=== PATIENT | female | born 1980 | race Caucasian/White ===

== ENCOUNTER → 2019-12-15 08:22 | Outpatient (CLI) | payer OTHER, SELFPAY ==
--- NOTE | ~2019-12-15 | XR_ITS ---
EXAMINATION: XR foot RT min 3V EXAM DATE: 12/15/2019 08:43 INDICATION: No known recent injury provided at this time. Pain of the right foot. Plantar fasciitis. TECHNIQUE: Right foot dorsoplantar, lateral and oblique projections obtained and reviewed. Compariso n is made to prior examination from 03/03/2009. FINDINGS: Previously seen right fifth metatarsal fracture has healed. No periosteal reaction or band of sclerosis to suggest subacute stress fracture. There is moderate hallux valgus and mild bunion formation. The joint spaces are uniform. There are no bony erosions identified. There are no acute fr actures or dislocations identified. There is no subcutaneous gas. The soft tissue is unremarkable. There are no radiopaque foreign bodies. IMPRESSION: Right hallux valgus, bunion. Reviewed, dictated and finalized at location B.
== END ==
PROVIDERS: PCP Internal Medicine; Visit Provider Chiropractor Rehabilitation
DX: M72.2 Plantar fascial fibromatosis (principal); M20.11 Hallux valgus (acquired), right foot
CPT/HCPCS: 73630

== ENCOUNTER → 2020-12-17 15:59 | Outpatient (CLI) | payer OTHER, SELFPAY ==
--- NOTE | ~2020-12-17 | MM_ITS ---
EXAMINATION: MM screening isaac BI w marina HISTORY: Screening TECHNIQUE: Craniocaudal and mediolateral oblique 3-D tomosynthesis images were obtained and synthetic 2-D images were generated. CAD analysis was submitted and interpreted. COMPARISON: No prior mammogram is available for comparison at this institution. BREAST PARENCHYMAL COMPOSITION: The breasts are heterogeneously dense, which may obscure small masses . FINDINGS: There are scattered asymmetries in the right breast. There are no suspicious masses, calcif ications or architectural distortion in the left breast to suggest malignancy. IMPRESSION: 1. Scattered right breast asymmetries. 2. Additional mammographic views and possible breast ultrasound are recommended. BI-RADS Category 0: Incomplete: Needs additional imaging evaluation. Reviewed, dictated and finalized at location A. IMPRESSION: 1. Scattered right breast asymmetries. 2. Additional mammographic views and possible breast ultrasound are recommended . BI-RADS Category 0: Incomplete: Needs additional imaging evaluation.
== END ==
PROVIDERS: Visit Provider Nurse Practitioner Obstetrics & Gynecology
DX: Z12.31 Encounter for screening mammogram for malignant neoplasm of breast (principal); R92.8 Other abnormal and inconclusive findings on diagnostic imaging of breast
CPT/HCPCS: 77063; 77067

== ENCOUNTER → 2021-04-01 07:53 | Outpatient (CLI) | payer OTHER, SELFPAY ==
--- NOTE | ~2021-04-01 | MMUS_ITS ---
EXAMINATION: MM diagnostic isaac RT w marina, US breast RT complete HISTORY: Follow-up right breast asymmetry TECHNIQUE: Additional 3-D tomosynthesis images of the right breast were performed and synthetic 2-D i mages were generated. CAD analysis was submitted and interpreted. High resolution complete right sheree st ultrasound was performed. COMPARISON: 12/17/2020 BREAST PARENCHYMAL COMPOSITION: The breasts are heterogenously dense, which may obscure small masses. FINDINGS: MAMMOGRAPHIC FINDINGS: There are no suspicious masses, calcifications or architectural distortion in the right breast to sug gest malignancy. ULTRASOUND: Complete right breast ultrasound: Normal heterogeneous echotexture without focal solid or cystic mass . IMPRESSION: 1. No mammographic or sonographic evidence for malignancy in the right breast. 2. Routine yearly screening mammogram and regular clinical breast examination are recommended. BI-RADS Category 1: Negative Reviewed, dictated and finalized at location A. IMPRESSION: 1. No mammographic or sonographic evidence for malignancy in the right breast. 2. Routine yearly screening mammogram and regular clinical breast examination a re recommended. BI-RADS Category 1: Negative
== END ==
PROVIDERS: Visit Provider Nurse Practitioner Obstetrics & Gynecology
DX: R92.8 Other abnormal and inconclusive findings on diagnostic imaging of breast (principal)
CPT/HCPCS: 76641; 77061; 77065; G0279

== ENCOUNTER → 2022-01-23 09:47 | Outpatient (CLI) | payer BC, SELFPAY ==
--- NOTE | ~2022-01-23 | XR_ITS ---
EXAMINATION: XR chest 2V DATE: 01/23/2022 10:27 INDICATION: Dyspnea, unspecified. TECHNIQUE: Frontal and lateral views of the chest were obtained. COMPARISON: Chest single view 03/28/2014 FINDINGS: The chest demonstrates clear lungs without pneumonia, pleural effusion, or pneumothorax. Th e heart size is normal. IMPRESSION: 1. No acute cardiopulmonary disease. Reviewed, dictated and finalized at location B.
== END ==
PROVIDERS: PCP Family Medicine; Visit Provider Family Medicine
DX: R06.00 Dyspnea, unspecified (principal)
CPT/HCPCS: 71046

== ENCOUNTER 2022-06-02 07:40 | Outpatient (CLI) | payer BC, SELFPAY ==
[2022-06-02 08:04] LABS: Basophils Percent Auto 0.8 % (0.2-1.2); Eosinophils Absolute Auto 0.1 K/mm3 (0-0.3); Eosinophils Percent Auto 2.7 % (0-4.4); Hematocrit 39.9 % (37.0-47.0); Hemoglobin 13.3 g/dL (12.0-15.0); Immature Granulocyte Absolute 0.01 K/mm3 (0.00-0.031); Immature Granulocyte Percent A 0.2 % (0-0.5); Lymphocytes Absolute Auto 1.92 K/mm3 (0.9-3.2); Lymphocytes Percent Auto 39.6 % (18.3-44.2); Mean Corpuscular HGB Conc 33.3 g/dl (32-36); Mean Corpuscular Hemoglobin 31.6 pg (26-34); Mean Corpuscular Volume 94.8 fl (80-100); Mean Platelet Volume 10.6 fl (7.4-10.4); Monocytes Absolute Auto 0.4 K/mm3 (0.1-0.6); Monocytes Percent Auto 7.6 % (2.6-8.5); Neutrophils Absolute Auto 2.4 K/mm3 (1.3-6.7); Neutrophils Percent Auto 49.1 % (45.5-73.1); Platelet Count Result 217 k/mm3 (150-375); Red Blood Count 4.21 M/mm3 (4.2-5.4); Red Cell Distribution Width 11.9 % (11.5-14.5); White Blood Count 4.9 K/mm3 (4.5-10.0)
[2022-06-02 08:23] LABS: Alanine Aminotransferase 16 U/L (6-35); Albumin Level 4.1 g/dL (3.5-5.1); Alkaline Phosphatase 54 U/L (38-126); Anion Gap 9 mmol/L (8-16); Aspartate Amino Transferase 28 U/L (14-36); Bilirubin,Total 0.7 mg/dL (0.2-1.3); Blood Urea Nitrogen 10 mg/dL (7-17); Calcium 9.1 mg/dL (8.4-10.2); Carbon Dioxide 27 mmol/L (22-30); Chloride 103 mmol/L (98-107); Cholesterol 154 mg/dL (0-200); Estimated Glomerular Filt Rate > 60; Glucose 95 mg/dL (65-110); HDL Direct 89 mg/dL; Potassium 3.9 mmol/L (3.4-5.0); Sodium 139 mmol/L (137-145); Triglycerides 102 mg/dL (<150)
[2022-06-02 08:34] LABS: LDL Cholesterol Direct 45 mg/dL
[2022-06-02 09:02] LABS: Hemoglobin A1C 4.7 % (<5.7)
[2022-06-02 09:12] LABS: Free T4 Free Thyroxine 1.22 ng/mL (0.78-2.19); Vitamin D 25 Hydroxy 80.9 ng/mL
== END 2022-06-02 07:41 | disposition home or self-care (01) ==
LOC: ANHLAB 07:42
PROVIDERS: PCP Family Medicine; Visit Provider Family Medicine
DX: R06.00 Dyspnea, unspecified (principal); E55.9 Vitamin D deficiency, unspecified; Z13.220 Encounter for screening for lipoid disorders; R53.83 Other fatigue; R73.9 Hyperglycemia, unspecified
CPT/HCPCS: 36415; 80053; 80061; 82306; 83036; 84439; 84443; 85025

== ENCOUNTER 2024-11-20 09:34 | Outpatient (CLI) | payer OTHER, SELFPAY ==
--- NOTE | ~2024-11-20 | MM_ITS ---
EXAMINATION: MM screening isaac BI w marina HISTORY: Screening TECHNIQUE: Craniocaudal and mediolateral oblique 3-D tomosynthesis images were obtained and synthetic 2-D images were generated. CAD analysis was submitted and interpreted. COMPARISON: Comparison to multiple prior studies sequentially, with oldest reviewed study dated 12/17. BREAST PARENCHYMAL COMPOSITION: Not dense: There are scattered areas of fibroglandular density. FINDINGS: There is no evidence of suspicious mass, calcification, or architectural distortion to sugg est malignancy in either breast. There has been no suspicious interval change. IMPRESSION: 1. No mammographic evidence of malignancy. 2. Recommend routine screening mammography in one year. BI-RADS Category 1: Negative Reviewed, dictated and finalized at location B. 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
--- OUTSIDE RECORDS SUMMARY | 2024-11-20 12:27 | XMS_ITS | Clinical Summary ---
Author Organization [facility] [place] [facility] [place] [address] [place] [address] Care Team Providers Care Stamp Maker Name Role Phone Ted Blackwell DO Primary Care Provider [phone] Allergies No known active allergies Medications ibuprofen (ADVIL,MOTRIN) 600 mg tablet Take 600 mg by mouth every 6 (six) hours as needed for pain Active albuterol HFA (PROVENTIL HFA,VENTOLIN HFA,PROAIR HFA) 90 mcg/actuation inhaler albuterol sulfate HFA 90 mcg/actuation aerosol inhaler INHALE 2 PUFFS BY MOUTH EVERY 4 HOURS NEEDED FOR SHORTNESS OF BREATH OR WHEEZING Active cephalexin (KEFLEX) 500 mg capsule TAKE 1 CAPSULE BY MOUTH FOUR TIMES A DAY FOR 7 DAYS 3 Active Blisovi 24 Fe 1 mg-20 mcg (24)/75 mg (4) per tablet Take 1 tablet by mouth daily 3 Active Active Problems Problem Noted Date Diagnosed Date Atypical squamous cells of u ndetermined significance (ASCUS) on Papanicolaou smear of cervix 08/31/2016 Overview (05/24/2023): ASCUS;Recorded Elsewhere: No Location: [facility] Source: EHR Chronic: N Practice ID: [id number] Billable Time: 10:30:00 AM Glycosuria 02/07/2014 Overview (05/24/2023): Glycosuria;Practice ID: [id number] Delivery normal 07/29/2012 Overview (05/24/2023): Normal delivery;Practice ID: [id number] Oligohydramnios with problem 2 Overview (05/24/2023): Oligohydramnios, antepartum;Practice ID: [id number] Oligohydramnios, antepartum;Recorded Elsewhere: No Location: [facility] Source: EHR Chronic: N Practice ID: [id number] Billable Time: 03:00:00 PM Amenorrhea 12/08/2011 Overview (05/24/2023): Absence of menstruation;Recorded Elsewhere: No Location: [facility] Source: EHR Chronic: N Practice ID: [id number] Billable Time: 02:45:00 PM Surgical History Surgery Date Site/Laterality Comments FRACTURE SURGERY Medical History Medical History Date Comments Hx Other Medical right ankle [place] Family History Medical History Relation Name Comments Diabetes Other Hypertension Other Family history of Hypertension; Relation Name Status Comments Other Social History Tobacco Use Types Packs/Day Years Used Date Smoking Tobacco: Never Smokeless Tobacco: Never Alcohol Use Standard Drinks/Week Comments Yes 0 (1 standard drink = 0.6 oz pur e alcohol) Comments No Sex and Gender Information Value Date Recorded Sex Assigned at Not on file Legal Sex Female 3:07 PM [employer] Gender Identity Not on file Sexual Orientation Not on file Obstetrics History Last Filed Vital Signs Vital Sign Reading Time Taken Comments Blood Pressure 129/82 06/25/2020 1:14 PM CDT Pulse 64 06/25/2020 1:14 PM CDT Temperature 37.2 C (98.9 F) 06/25/2020 1:14 PM CDT Respiratory Rate 16 01/16/2019 7:42 PM CDT Oxygen Saturation 99% 01/16/2019 7:42 PM CDT Inhaled Oxygen Concentration - - Weight 53.1 kg (117 lb) 06/25/2020 1:14 PM CDT Height 162.6 cm (5' 4 ) 06/25/2020 1:14 PM CDT Body Mass Index 20.08 06/25/2020 1:14 PM CDT Plan of Treatment Health Maintenance Due Date Last Done Comments Breast Cancer Screening-Mammogram 1978 Cervical Cancer Screening 1978 Colon Cancer Screening-Colonoscopy 1978 Depression Screening 1978 Hepatitis C Screening 1978 Hepatitis B Screening 1996 Regular Well Visit/Exam 18-64 1996 Covid-19 Vaccine (2 - 2023-2 5 season) 2024 08/04/2021 Influenza Vaccine (#1) 2024 2, 07/30/2021 DTaP/Tdap/Td Vaccine (2 - Td or Tdap) 03/06/2033 03/06/2023 HPV Vaccines Aged Out No longer eligi ble based on patient's age to complete this topic Pneumococcal vaccine <65 Aged Out No longer eligible based on patient's age to complete this topic Insurance [facility] [place] [employer] [facility] [employer] GENER[employer] S AND [facility] Care Teams Stamp Maker Relationship Specialty Start Date End Date Ted Blackwell DO PCP - General Internal Medicine 01/16/19
--- OUTSIDE RECORDS SUMMARY | 2024-11-20 12:27 | XMS_ITS | Data Portability ---
Author Organization [facility] [place] Address [address] [place] [address] Care Team Providers Care Clinical Research Scientist Name Role Phone CLARISSA ESCALERA Primary Care Provider Assessment Encounter Date Assessment Date Assessment LastModified by Organization Details LastModified Time 06/11/2020 06/11/2020 Annual gynecological exam performed. Patient will come back in a year unless there are new symptoms. [email or web address] Not available 06/11/2020 12:45:21 06/19/2021 06/19/2021 Annual gynecological exam performed. Patient will come back in a year unless there are new symptoms. Not available 06/19/2021 10:55:27 09/22/2022 09/22/2022 Annual gynecological exam performed. Patient will come back in a year unless there are new symptoms. [email or web address] Not available 09/22/2022 09:41:59 12/23/2023 12/23/2023 Annual gynecological exam performed. Patient will come back in a year unless there are new symptoms. [email or web address] Not available 12/23/2023 14:34:41 Plan of Treatment Reminders Order Date Submit Date Provider Last Modified By Organization Details Last Modified Time Details Appointments None recorded . Lab None recorded . Referral None recorded . Procedures None recorded . Surgeries None recorded . Imaging MAMMO, screenin g, bilclivea l 2023 024 [email or web address] [facility], [address], [place], [address], 05/23/202 4 14:17:59 MAMMO, screenin g, bilatera l 2021 022 [facility] , [address], [address] [address], [place], [address], 3 05:01:15 Medication Orders Junel Fe 24 1 mg-20 mcg (24)/75 mg (4) tablet [address] [id number], [address], [place], [place], [id number], 4 14:50:50 Blisovi 24 Fe 1 mg-20 mcg (24)/75 mg (4) tablet 2021 022 [id number], [address], [place], [address], 2 09:49:45 Junel Fe 24 1 mg-20 mcg (24)/75 mg (4) tablet 2020 021 [facility] [id number] [facility], [address] [facility], [place], [address], 1 11:06:58 Junel FE /20 (28) 1 mg-20 mcg (21)/75 mg (7) tablet 2019 020 [facility] [id number] [facility], [address] [facility], [place], [address], 2 09:42:36 Patient TargetsNo targets recorded. Patient Instructions Encounter Date Encounter Id Patient Instructions Last Modified By Organization Details Last Modified Time 06/11/2020 [id number] [email or web address] Not available 13:16:00 Reason for Referral None Reported. Results Created Date Observation Date Name Description Value Unit Range Abnormal Flag Note LastModifiedBy Organization Detail LastModifiedTime 06/11/20 20 06/12/2020 CT + NG DNA, PCR, unspe cifie d speci men trichomonas vaginalis, aptima (panther) NOT DETECT ED normal DNA testi ng perfo rmed by Trans cript ion Media johnny Ampli ficat ion (TMA) These resul ts shoul d be inter prete d in light of all clini courtney and labor atory findi ngs. This assay is highl y accur ate, but rare false posit jim and negat jim resul ts may occur . Posit jim resul ts in low preva lence popul ation s may requi re re-ev aluat ion. A negat jim resul t does not precl ude a possi ble infec tion due to a speci men inade quacy or sampl ing error . Test perfo rmed by [employer] (V3D) Patho [employer], d/b/a [employer], [address], [place] [address] , Anamaria Freed ra, DO, Labor atory Direc tor. Not Available [facility] ([facility]) [address], [place], [address], 06/13/2020 19:56:41 06/11/20 20 06/12/2020 CT + NG DNA, PCR, unspe cifie d speci men neisseria gonorrhoeae, aptima NOT DETECT ED normal DNA testi ng perfo rmed by Trans cript ion Media johnny Ampli ficat ion (TMA) These resul ts shoul d be inter prete d in light of all clini courtney and labor atory findi ngs. This assay is highl y accur ate, but rare false posit jim and negat jim resul ts may occur . Posit jim resul ts in low preva lence popul ation s may requi re re-ev aluat ion. A negat jim resul t does not precl ude a possi ble infec tion due to a speci men inade quacy or sampl ing error . Test perfo rmed by [employer] (V3D) Patho [employer], [employer], d/b/a [employer] [employer], [address], [place] [address] , Anamaria Freed ra, DO, Labor atory Direc tor. Not Available [facility] ([facility]) [address], [place], [address], 06/13/2020 19:56:41 06/11/20 20 06/12/2020 CT + NG DNA, PCR, unspe cifie d speci men chlamydia trachomatis, aptima NOT DETECT ED normal DNA testi ng perfo rmed by Trans cript ion Media johnny Ampli ficat ion (TMA) These resul ts shoul d be inter prete d in light of all clini courtney and labor atory findi ngs. This assay is highl y accur ate, but rare false posit jim and negat jim resul ts may occur . Posit jim resul ts in low preva lence popul ation s may requi re re-ev aluat ion. A negat jim resul t does not precl ude a possi ble infec tion due to a speci men inade quacy or sampl ing error . Test perfo rmed by [facility], d/b/a [employer], [address] [facility] [address], [place] [address] , Anamaria Freed ra, DO, Labor atory Direc tor. Not Available [facility] ([facility]) [address], [place], [address], 06/13/2020 19:56:41 06/11/20 20 06/12/2020 HPV DNA, high- risk HPV high risk NOT DETECT ED normal The human papil lomav irus (HPV) High Risk Shweta vega is an FDA-a pprov ed in-vi tro ampli fied nucle ic acid test for the quali tativ e detec tion of E6/E7 viral mRNA. Resul ts shoul d be corre lated with patie nt prese ntati on, histo ry, cervi courtney cytol ogy and other clini courtney and labor atory findi ngs. See https ://I-frontdesk wKOWN. [employer]/s ites/ defau lt/fi les/2 018-0 3/AW- 10122 _002_ 01.pd f for furth er infor matio n. Test perfo rmed by [facility], d/b/a [employer], [address], [place] [address] , Anamaria Freed ra, DO, Labor atory Dire tor. Not Available [facility] ([facility]) [address], [place], [address], 06/13/2020 19:56:41 06/11/20 20 06/13/2020 pap, LB Pap test thin prep Negati ve for Intrae pithel ial Lesion or Malign allison normal ACCES NAVARRO #: [id number] [facility] e: Cervi courtney/E ndoce rvica l LMP: 02/20 Date Taken : 06/11 Speci men Type: ThinP rep Vial Date Repor johnny: 2019 Clini coutrney Data: Cytot ech: Arturo parrish, CT( CP) Date Repor johnny: 020 Speci men Adequ acy: Satis facto ry for evalu ation Endoc ervic al/tr ansfo rmati on zone compo nent prese nt Gener al Categ oriza tion: NEGAT JIM FOR INTRA EPITH ELIAL LESIO N OR MALIG QING The follo wing tests have been order ed as reque sted and a separ ate repor t will be issue d: Chlam ydia, Gonor rhoea e, and Trich omona s This speci men has been raul zed by the ThinP rep Imagi ng Syste m, an inter activ e compu ter syste m which will ts the lab in the scree carrillo of ThinP rep Pap Test slide s. Follo wing imagi ng, the slide was revie wed by a Cytot echno logis t and/o r Patho logis t. D N A A S S A Y S R E P O R T TEST NAME RESUL TS ----- ---- ----- -- HPV High Risk Scree n (TMA) ThinP rep Vial The human papil lomav irus (HPV) High Risk Shweta vega is an FDA-a pprov ed in-vi tro ampli fied nucle ic acid test for the quali tativ e detec tion of E6/E7 viral mRNA. Resul ts shoul d be corre lated with patie nt prese ntati on, histo ry, cervi courtney cytol ogy and other clini courtney and labor atory findi ngs. See https ://CREATIV.COM/s ites/ defau lt/fi -0 - 76645 _002_ .pd f for furth er infor matio n. Test perfo rmed by [employer] [facility] [employer], d/b/a [employer], [address], [place] [address] , Anamaria Freed ra, DO, Labor atory Direc tor. HPV High Risk *HPV NOT DETEC JOHNNY (TYPE S 16, 18, 31, 33, 35, 39, 45, 51, 52, 56, 58, 59, 66, 68) *HPV: The human papil lomav irus (HPV) High Risk Shweta vega is an FDA-a pprov ed in-vi tro ampli fied nucle ic acid test for the quali tativ e detec tion of E6/E7 viral mRNA. Resul ts yimi d be corre lated with patie nt prese ntati on, histo ry, cervi courtney cytol ogy and other clini courtney and labor atory findi ngs. See https ://CREATIV.COM/s ites/ defau lt/fi -0 - 83231 _002_ .pd f for furth er infor matio n. Test perfo rmed by [employer] iated Patho [employer], d/b/a [employer] [employer], [address], [place] [address] , Anamaria Freed ra, DO, Labor atory Direc tor. End of Repor t Techn ical servi edna provi ded by [employer] iated Patho [employer], d/b/a [employer] [employer], [address] [place] [address] Avtar Kiser MD, Labor atory Direc tor. Case revie wed and diagn osis rende red at [facility], d/b/a [facility], [address] [place] [address] Avtar Kiser MD, Labor atory Direc tor. CONFI DENTI AL Not Available [facility] ([facility]) [address], [place], [address], 06/13/2020 20:25:55 06/19/20 21 06/19/2021 CT/GC AND TRICH OMONA S VAGIN YANI (RRNA ), SWAB chlamydia trachomatis, PCR Negati ve negati ve Not Available [facility] ([facility]) [address], [place], [address], 06/20/2021 13:13:35 06/19/20 21 06/19/2021 CT/GC AND TRICH OMONA S VAGIN YANI (RRNA ), SWAB neisseria gonorrhoeae, PCR Negati ve negati ve Not Available [facility] (Lab) [address], [place], [address], 06/20/2021 13:13:35 06/19/20 21 06/19/2021 CT/GC AND TRICH OMONA S VAGIN YANI (RRNA ), SWAB trichomonas vaginalis ribosomal RNA (rrna) Negati ve negati ve Not Available [facility] (Lab) [address], [place], [address], 06/20/2021 13:13:35 09/22/20 22 09/22/2022 IMAGE GUIDE D PAP AND HPV REGAR DLESS image guided Pap, HPV regardless of Pap result SEE RESULT S BELOW CASE REPOR T: Cytol ogy Gynec ologi courtney Repor t Case: [id number] Autho valentin g Provi tee: Lemuel Wong Colle cted: 09/22 1508 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 Elect alessandra fabyaustin pamela d by Mark Thorpe ed, CT on 09/24 at 8:08 PM ----- ----- ----- ----- ----- ----- ----- ----- ----- ----- ----- ----- ----- ----- ----- ----- ----- ---- HPV RESUL TS: HPV mRNA E6/E7 : No HPV mRNA Detec johnny NOTE: This high risk HPV mRNA assay detec ts fourt een high- risk HPV types (16, 18, 31, 33, 35, 39, 45, 51, 52, 56, 58, 59, 66, 68) witho ut diffe renti ation . COMME NT: Note: This speci men was revie wed by a Cytot echno logis t and/o r Patho logis t (as indic ated in this repor t) after evalu ation using the Thinp rep Imagi ng Syste m. CLINI COURTNEY INFOR MATIO N: Menst rual Statu s: LMP (if appli cable ): Clini courtney Histo ry/Pr eviou s Pap: Type of Neopl bethany (if appli cable ): Signi fican t Clini courtney Findi ngs: Other Histo ry: Hormo kristina (if appli cable ): PAP EDUCA NAVEED L NOTE: The Pap Test is a scree carrillo test with an inher ent false negat jim rate. Liqui d-bas ed sampl ing may decre ase, but will not elimi emma, false negat jim resul ts. A negat jim resul t does not precl ude the prese nce and/o r devel opmen t of disea se, since the prese nce of abnor mal cells in the sampl e depen ds on the locat ion of the lesio n and sampl ing techn ique. Aleida nued regul ar scree carrillo is the best metho d of cance r preve ntion . If repor johnny cytol ogic findi ng do not corre late with physi courtney and/o r histo rical findi ngs, furth er inves tigat ion is recom marcia d, as clini terell warrgavin nted. Not Available [facility] (Lab) [address], [place], [address], 09/24/2022 21:10:38 09/22/20 22 09/22/2022 TRICH OMONA S VAGIN YANI (RRNA ) trichomonas vaginalis ribosomal RNA (rrna) NEGATI VE negati ve Not Available [facility] (Lab) [address], [place], [address], 09/24/2022 21:10:39 09/22/20 22 09/22/2022 CT/GC (BISHOP) , THINP REP VIAL chlamydia trachomatis, PCR NEGATI VE negati ve Not Available [facility] (Lab) [address], [place], [address], 09/24/2022 21:10:39 09/22/20 22 09/22/2022 CT/GC (BISHOP) , THINP REP VIAL neisseria gonorrhoeae, PCR NEGATI VE negati ve Not Available [facility] (Lab) [address], [place], [address], 09/24/2022 21:10:39 12/23/19 24 12/23/2023 IMAGE GUIDE D PAP AND HPV REGAR DLESS image guided Pap, HPV regardless of Pap result SEE RESULT S BELOW CASE REPOR T: Cytol ogy Gynec ologi courtney Repor t Case: [id number] Autho valentin calvo Provi tee: Lemuel Wong Colle cted: 12/22 1439 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 Funga l organ isms morph ologi terell consi stent with Lacy da spp. Elect alessandra hogue pamela d by Bertha Davis , CT on 2023 at 6:25 PM ----- ----- ----- ----- ----- ----- ----- ----- ----- ----- ----- ----- ----- ----- ----- ----- ----- ---- HPV RESUL TS: HPV mRNA E6/E7 : No HPV mRNA Detec johnny NOTE: This high risk HPV mRNA assay detec ts fourt een high- risk HPV types (16, 18, 31, 33, 35, 39, 45, 51, 52, 56, 58, 59, 66, 68) witho ut diffe renti ation . COMME NT: This speci men was revie wed by a Cytot echno logis t and/o r Patho logis t (as indic ated in this repor t) after evalu ation using the Thinp rep Imagi ng Syste m. CLINI COURTNEY INFOR MATIO N: Menst rual Statu s: LMP (if appli cable ): Clini courtney Histo ry/Pr eviou s Pap: Type of Neopl bethany (if appli cable ): Signi fican t Clini courtney Findi ngs: Other Histo ry: Hormo kristina (if appli cable ): PAP EDUCA NAVEED L NOTE: The Pap Test is a scree carrillo test with an inher ent false negat jim rate. Liqui d-bas ed sampl ing may decre ase, but will not elimi emma, false negat jim resul ts. A negat jim resul t does not precl ude the prese nce and/o r devel opmen t of disea se, since the prese nce of abnor mal cells in the sampl e depen ds on the locat ion of the lesio n and sampl ing techn ique. Ale[place] nued regul ar scree carrillo is the best metho d of cance r preve ntion . If repor johnny cytol ogic findi ng do not corre late with physi courtney and/o r histo rical findi ngs, furth er inves tigat ion is recom marcia d, as clini terell ramirez nted. Not Available [facility] (Lab) [address], [place], [address], 12/27/2023 19:29:16 12/19/19 21 12/17/2020 MAMMO , scree carrillo, bilat eral No observ ation record ed. [facility] [address], [place], [address], 12/28/2020 00:18:54 12/19/19 21 12/17/2020 MAMMO , scree carrillo, bilat eral No observ ation record ed. [facility] [address], [place], [address], 12/27/2020 17:22:27 04/01/20 21 04/01/2021 MAMMO , diagn ostic , unila teral No observ ation record ed. [facility] [address], [place], [address], 04/02/2021 09:42:26 11/20/19 25 11/20/2024 MAMMO , scree carrillo, bilat eral No observ ation record ed. [address], [place], [address], 11/20/2024 12:49:40 Result Notes None recorded. Problems Name Problem SNOMED Code Status Onset Date Resolution Date Notes Provider Name and Address Organization Details Recorded Time Routine antenata l care Completed 201106/18/2021 Supervis ion of other normal pregnanc y;Katelynti ce ID: 0001 [facility] 11:15:43 Oligohyd ramnios with antenata l problem [id number] Completed 201106/18/2021 Oligohyd ramnios, antepart um;Pract ice ID: 0001 Marline Hurt [facility] 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 11:15:33 Delivery normal [id number] Completed 201106/18/2021 Normal delivery ;Practic e ID: 0001 Marline Hurt [facility] 11:15:21 Single live [id number] Completed 201106/18/2021 Mother with single liveborn ;Practic e ID: 0001 Marline Hurt [facility] 11:15:49 Postpart um care Completed 201106/18/2021 Routine postpart um follow-u p;Practi ce ID: 0001 Marline Hurt [facility] 11:15:37 Speciali zed medical examinat ion Completed 201206/18/2021 Routine gynecolo gical examinat ion;Prac ivania ID: 0001 Marline Hurt [facility] 11:15:53 Screenin g for malignan t neoplasm of cervix Completed 201206/18/2021 Pap Smear;Pr actice ID: 0001 Marline apple, [facility] 1 11:15:45 Vaginiti s and vulvovag initis Completed 201306/18/2021 Vaginiti s and vulvovag initis, unspecif ied;Prac ivania ID: 0001 Marline Hurt [facility] 11:15:55 Glycosur ia [id number] Completed 201306/18/2021 Glycosur ia;Pract ice ID: 0001 Marline Hurt [facility] 11:15:30 Adult health examinat ion Completed 201406/18/2021 Routine general medical examinat ion at a health care facility ;Practic e ID: 0001 Marline Hurt [facility] 11:15:18 Oligohyd ramnios with antenata l problem [id number] Completed 201108/29/2012 Oligohyd ramnios, antepart um;Recor ded Elsewher e: No Locat ion: [facility] S ource: EHR Supervisor Tellers violeta: N Practi ce ID: 0001 Boris lable Time: 03:00:00 PM Marline Hurt [facility] 11:15:36 Atypical squamous cells of undeterm ined signific ance on cervical Papanico laou smear [id number] Completed 201506/18/2021 ASCUS;Re corded Elsewher e: No Locat ion: [facility] S ource: EHR Supervisor Tellers violeta: N Practi ce ID: 0001 Boris lable Time: 10:30:00 AM Marline Hurt [facility] 11:15:19 Localize d swelling , mass and lump, neck Completed 201806/18/2021 Localize d swelling , mass and lump, neck;Rec orded Elsewher e: No Locat ion: [facility] S ource: EHR Supervisor Tellers violeta: N Practi ce ID: 0001 Boris lable Time: 01:00:00 PM Marline Hurt [facility] 1 11:15:34 Amenorrh ea [id number] Completed 201108/29/2012 Absence of menstrua tion;Rec orded Elsewher e: No Locat ion: Ronnie [facility] S ource: EHR Supervisor Tellers violeta: N Practi ce ID: 0001 Boris lable Time: 02:45:00 PM Not Available [facility] 21:48:[address] Concept Completed 201606/18/2021 Encntr for general adult medical exam w/o abnormal findings ;Recorde d Elsewher e: No Locat ion: [facility] lj [facility] ource: EHR Supervisor Tellers violeta: N Practi ce ID: 0001 Boris lable Time: 10:00:00 AM Marline Hurt [facility] 1 11:15:50 Pregnanc y test negative [id number] Completed 201506/18/2021 Encounte r for pregnanc y test, result negative ;Recorde d Elsewher e: No [facility] ource: EHR Supervisor Tellers violeta: N Katelynti ce ID: 0001 Boris lable Time: 10:30:00 AM Marline Hurt [facility] 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 1 11:15:52 Routine antenata l care Completed 201108/29/2012 Supervis ion of other normal pregnanc y;Record ed Elsewher e: No Locat ion: [facility] S ource: EHR Supervisor Tellers violeta: N Katelynti ce ID: 0001 Boris lable Time: 02:45:00 PM Marline Hurt [facility] 11:15:43 Pregnanc y test positive [id number] Completed 201106/18/2021 Positive Pregnanc y Test;Pra ctice ID: 0001 Marline Hurt [facility] 11:15:40 anatomy study Completed 201106/18/2021 [facility] ANATMC SURVEY;P ractice ID: 0001 Marline Hurt [facility] 11:15:28 Screenin g for malignan t neoplasm of rectum Completed 201806/18/2021 Encounte r for screenin g for malignan t neoplasm of rectum;R ecorded Elsewher e: No Locat ion: [facility] ource: EHR Supervisor Tellers violeta: N Katelynti ce ID: 0001 Boris lable Time: 02:00:00 PM Marline Hurt [facility] 11:15:47 Human papillom avirus deoxyrib onucleic acid detected , high risk on cervical specimen [id number] Completed 201506/18/2021 HR HPV;Saravanan rded Elsewher e: No Locat ion: [facility] ource: EHR Supervisor Tellers violeta: N Katelynti ce ID: 0001 Boris lable Time: 10:30:[address] [facility] 11:15:31 Problem Notes None recorded. Procedures Surgical History Date Name Laterality Status Provider Name and Address Organization Details Recorded Time 1 Date of Last Mammogram completed Marline [facility] 06/19/2021 10:32:08 0 Date of Last Pap Smear completed Marline [facility] 06/19/2021 10:31:11 6 Colposcopy completed Marline Hutr [facility] 06/19/2021 10:32:30 procedure on ankle completed Brooke Beltran [facility] 06/11/2020 12:39:22 Imaging Results Imaging Date Name Status LastModified by Organiz ation Details LastModified Time 12/17/2020 MAMMO, screening, bilateral completed [facility] [address], [place], [address], 12/28/2020 00:18:54 12/17/2020 MAMMO, screening, bilateral completed [facility] [address], [place], [address], 12/27/2020 17:22:27 04/01/2021 MAMMO, diagnostic, unilateral completed [facility] [address], [place], [address], 04/02/2021 09:42:26 11/20/2024 MAMMO, screening, bilateral active [facility] [address], [place], [address], 11/20/2024 12:49:40 Procedure Notes None recorded. Medical Equipment None Reported. Allergies No known drug allergies Medications Name Sig Start Date Stop Date Status Note LastModified by Organization Details LastModified Time Zithromax Z-Lakhwinder 250 mg tablet take 2 tablet by oral route every day for 1 day then 1 tablet (250 mg) by oral route once daily for 4 days 02/24 completed Prescrib ed Elsewher e: No Locat ion: [facility] odify By: cmedical Encount er DateTime : 02/21/20 14 10:14:23 AM Not Available Not Available Not Available Diflucan 150 mg tablet take 1 tablet by oral route once 09/01 completed Prescrib ed Elsewher e: No Locat ion: [facility] odify By: america Encounte r DateTime : 01/28/20 16 01:19:56 PM Not Available Not Available Not Available Macrobid 100 mg capsule take 1 capsule (100MG) by oral route every 12 hours with food 12/13 completed Prescrib ed Elsewher e: No Locat ion: Ronnie calhoun [facility] odify By: isac muniz DateTime : 01/27/20 12 10:27:07 AM Not Available Not Available Not Available betametha sone valerate 0.1 % topical cream apply by topical route every day a thin layer to the affected area(s) 01/16 completed Prescrib ed Elsewher e: No Locat ion: Ronnie calhoun [facility] odify By: leora rm DateTime : 02/17/20 14 02:26:29 PM Not Available Not Available Not Available cephalexi n 500 mg capsule TAKE 1 CAPSULE BY MOUTH FOUR TIMES A DAY FOR 7 DAYS 12/22 completed Not Available Not Available Not Available Micronor (28) 0.35 mg tablet take 1 tablet by oral route every day 12/13 completed Prescrib ed Elsewher e: No Locat ion: Ronnie calhoun [facility] odify By: isac muniz DateTime : 08/29/20 12 09:15:00 AM Not Available Not Available Not Available albuterol sulfate HFA 90 mcg/actua tion aerosol inhaler INHALE 2 PUFFS BY MOUTH EVERY 4 HOURS NEEDED FOR SHORTNES S OF BREATH OR WHEEZING 12/22 completed Not Available Not Available Not Available Terazol 7 0.4 % vaginal cream insert 1 applicat orful by vaginal route every day for 7 days at bedtime 02/13 completed Prescrib ed Elsewher e: No Locat ion: Ronnie calhoun [facility] odify By: conner Barragan ntcarissa DateTime : 02/08/20 14 02:30:00 PM Not Available Not Available Not Available multivita min capsule take 1 capsule by oral route every day 09/01 completed Prescrib ed Elsewher e: Yes Loca tion: Ronnie calhoun [facility] odify By: america Encounte r DateTime : 02/08/20 14 02:30:00 PM Not Available Not Available Not Available Junel FE 10/23 (28) 1 mg-20 mcg (21)/75 mg (7) tablet TAKE 1 TABLET BY MOUTH EVERY DAY 09/22 completed Not Available Not Available Not Available Lo Loestrin Fe 1 mg-10 mcg (24)/10 mcg (2) tablet take 1 tablet by oral route every day 12/20 completed Prescrib ed Elsewher e: No Locat ion: [facility] odify By: swathi Calhoun ncounter DateTime : 12/14/19 13 09:30:00 AM Not Available Not Available Not Available Marc-D uo DHA 29 mg-1 mg-400 mg oral pack take 1 by Oral route every day 12/13 completed Prescrib ed Elsewher e: No Locat ion: [facility] odify By: isac Calhoun ncounter DateTime : 08/13/20 11 02:34:06 PM Not Available Not Available Not Available Fe 24 1 mg-20 mcg (24)/75 mg (4) tablet Take 1 tablet every day by oral route with meal(s) for 90 days. 2023 active Not Available Not Available Not Avai labclair Vitals Date Recorded Body height Body mass index (BMI) Body weight Provider Name and Address Organization Details Last Updated DateTime 06/19/2021 161.29 cm 20.2 kg/m2 92548.71 g Marline Hurt [facility] 06/19/2021 10:56:02 Date Recorded Systolic blood pressure Diastolic blood pressure Provider Name and Address Organization Details Last Updated DateTime 06/19/2021 122 mm[Hg] 80 mm[Hg] Emmie Monge, [facility]- [address], [place], [address], [facility] 06/19/2021 11:06:07 Date Recorded Body height Body mass index (BMI) Body weight Systolic blood pressure Diastolic blood pressure Provider Name and Address Organization Details Last Updated DateTime 09/22/2022 161.29 cm 21.2 kg/m2 48748.83 g 120 mm[Hg] 74 mm[Hg] Tiffany Tonye [facility] 2 09:42:25 Date Recorded Body height Body mass index (BMI) Body weight Systolic blood pressure Diastolic blood pressure Provider Name and Address Organization Details Last Updated DateTime 06/11/2020 162.56 cm 20.3 kg/m2 61685.9 g 136 mm[Hg] 75 mm[Hg] Brooke Beltran [facility] 0 12:45:50 Date Recorded Body height Body mass index (BMI) Body weight Systolic blood pressure Diastolic blood pressure Provider Name and Address Organization Details Last Updated DateTime 12/23/2023 161.29 cm 21.9 kg/m2 53481.48 g 125 mm[Hg] 72 mm[Hg] Jasmin Price [facility] 4 14:35:32 Social History Question Answer Notes LastModified by Organizat ion Details LastModified Time Tobacco Smoking Status Never Smoker Ella Roca zechariah, [facility] 09/22/2022 09:35:52 Do You Have An Advance Directive? No Information not available 06/19/2021 What Is Your Level Of Alcohol Consumption? Occasional Information not available 06/19/2021 Are You Blind Or Do You Have Difficulty Seeing? No Information not available 06/19/2021 What Is Your Level Of Caffeine Consumption? Heavy dswayne Information not available 12/23/2023 How Much Tobacco Do You Chew? None Information not available 06/19/2021 In The 14 Days Before Symptom Onset, Have You Had Close Contact With A Laboratory-confir med COVID-19 While That Case Was Ill? No Information not available 06/19/2021 In The 14 Days Before Symptom Onset, Have You Had Close Contact With A Person Who Is Under Investigation For COVID-19 While That Person Was Ill? No Information not available 06/19/2021 Have You Been To An Area Known To Be High Risk For COVID-19? No Information not available 06/19/2021 Are You Deaf Or Do You Have Serious Difficulty Hearing? No Information not available 06/19/2021 What Type Of Diet Are You Following? REGULAR Information not available 06/19/2021 What Is The Highest Grade Or Level Of School You Have Completed Or The Highest Degree You Have Received? 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 No Information not available 06/19/2021 Do You Use Protection During Sex? No Information not available 06/19/2021 Do You Use Your Seat Belt Or Car Seat Routinely? Yes Information not available 06/19/2021 Do You Have Smoke And Carbon Monoxide Detectors In Your Home? Yes Information not available 06/19/2021 How Much Tobacco Do You Smoke? No Information not available 06/19/2021 Do You Feel Stressed (tense, Restless, Nervous, Or Anxious, Or Unable To Sleep At Night)? HR4581-0 Information not available 06/19/2021 Do You Use Any Illicit Or Recreational Drugs? No Information not available 06/19/2021 Do You Use Sunscreen Routinely? Yes Information not available 06/19/2021 Have You Used IV Drugs? No Information not available 06/19/2021 Sex: Unknown Functional Status Question Answer Note LastModified by Organizat ion Details LastModified Time Do you have difficulty walking or climbing stairs? No Information not available 09/22/2022 Are you able to walk? YESWOREST Information not available 06/19/2021 Are you able to care for yourself? Yes Information not available 09/22/2022 Do you have difficulty dressing or bathing? No Information not available 09/22/2022 What is your exercise level? Heavy Information not available 06/19/2021 Mental Status None recorded. Family History Nothing Reported. Medical History Condition Response Allergies (Food, seasonal, environmental ) N Other N Breast Cancer N Drug/Latex Allergies/Reactions N Blood Transfusion N Dermatologic Disorders N Lung Disease N Defects or Inherited Disease N Breast Problem N Gestational Diabetes N Hematologic disorders N Anesthesia Complications N History of STI N Deep Vein Thrombosis N Polycystic ovary syndrome N Anxiety Disorder N Autoimmune disease N Arthritis N Infertility N Polyps N Acid Reflux (GERD) N History of abnormal pap N Cancer N Stroke N Varicosities N Neurologic/Epilepsy N Endometriosis N High Cholesterol N Headaches N Fibromyalgia N Kidney Disease N Heart Problems N Kidney or Bladder Problems N Thyroid Problems N GI Problems N Eating Disorder N Anemia N Art (IVF or FET) N Psychiatric Illness N Ovarian Cancer N Diabetes N Pulmonary (TB, Asthma) N Hepatitis/Liver Disease N No Past Medical History N Eczema N Urinary Tract Infection N Abuse/Domestic Violence N Asthma N Trauma/Violence N Depression/ depression N Heart Disease N Pre-Eclampsia N Hypertension N Osteoporosis N Thrombophilias N Gynecological History Statement/Question Response Abnormal Pap Y Flow Light Date of Last Mammogram 04/01/2021 Date of LMP 05/29/2021 N On BCP's at Conception? N STIs/STDs N Was last menstrual period normal Y HPV Vaccine N Colposcopy 02/25/2016 Current Control Method BCPs Age at First Child 31 Frequency of Cycle (Q days) 3 Sexually Active? Y BCPs Menses Monthly Y Age of first menstrual cycle 11 Date of Last Pap Smear 06/11/2020 Sexual Problems? N LMP Approximate Desired Control Method BCPs N Obstetrics History GPAL:G 3 P 2 0 1 2 Type Value Full Term 2 Spontaneous 1 Living 2 Total 3 Past Encounters Encounter ID Performer Location Encounter Start Date Encounter Closed Date Diagnosis/Indication Diagnosis SNOMED-CT Code Diagnosis ICD10 Code Diagnosis Note [id number] Emmie Monge [facility] [address] [address] 06/11/2020 12:39:50 06/11/2020 13:19:52 Gynecologic examination 49032690 Z01.419 Suggested Calcium with Vitamin D 1200-1500m g daily. Patient advised to get an annual flu shot in the fall and she could obtain at [facility] or [facility] take care clinic. Also to obtain TDap vaccinatio n if you have not had one in the last 10 years. Recommend yearly mammograms . Encouraged monthly self breast exams. Encourage safe sexual practices, to use condoms and limit partners if not already in a monogamous relationsh ip. Engage in daily exercise of low impact aerobic exercise 45-60 minutes 4-5 times weekly. Avoid tobacco and illicit drugs as well as using moderation with alcohol intake less than 1-2 8 oz beverages daily. This lifestyle behavior pattern will lead to less health conditions and longer life span. If BMI greater than 25 weight watchers or dietary consult advised. All questions have been answered. Patient appears to understand informatio n, but if you have any questions please call or respond to this email. Rx 10/23 sent x 1yr Pap/hpv done STD done. spouse for being unfaithful . Recommend counseling CBT if needed. [id number] Emmie Monge [facility] [address] [address] 06/19/2021 10:38:50 06/19/2021 12:08:38 Gynecologic examination [id number] Z01.419 Suggested Calcium with Vitamin D 1200-1500m g daily. Patient advised to get an annual flu shot in the fall and she could obtain at [facility] or [facility]. Also to obtain TDap vaccinatio n if you have not had one in the last 10 years. Recommend yearly mammograms . Encouraged monthly self breast exams. Encourage safe sexual practices, to use condoms and limit partners if not already in a monogamous relationsh ip. Engage in daily exercise of low impact aerobic exercise 45-60 minutes 4-5 times weekly. Avoid tobacco and illicit drugs as well as using moderation with alcohol intake less than 1-2 8 oz beverages daily. This lifestyle behavior pattern will lead to less health conditions and longer life span. If BMI greater than 25 weight watchers or dietary consult advised. All questions have been answered. Patient appears to understand informatio n, but if you have any questions please call or respond to this email. Rx 10/23 sent x 1yr Pap/hpv q3-5yrs per asccp unless otherwise indicated. STD done. Divorce is final.She is doing really well & kids are adjusting too. [facility] ion care management [id number] Z30.9 Happy on OCPWishes to continueRF sent x 1yr [id number] Emmie Monge [facility] [address] [address] 09/22/2022 09:34:51 09/22/2022 09:58:55 Gynecologic examination [id number] Z01.419 Suggested Calcium with Vitamin D 1200-1500m g daily. Patient advised to get an annual flu shot in the fall and she could obtain at [facility] or [facility]. Also to obtain TDap vaccinatio n if you have not had one in the last 10 years. Recommend yearly mammograms . Encouraged monthly self breast exams. Encourage safe sexual practices, to use condoms and limit partners if not already in a monogamous relationsh ip. Engage in daily exercise of low impact aerobic exercise 45-60 minutes 4-5 times weekly. Avoid tobacco and illicit drugs as well as using moderation with alcohol intake less than 1-2 8 oz beverages daily. This lifestyle behavior pattern will lead to less health conditions and longer life span. If BMI greater than 25 weight watchers or dietary consult advised. All questions have been answered. Patient appears to understand informatio n, but if you have any questions please call or respond to this email. Pap/hpv sent STD Screen sent Genetic Screen discussed Colon Screen PCP Dexa Screen na Routine Labs PCPMammo ordered Contracept ion care management [id number] Z30.9 Happy on OCPWishes to continueRF sent x 1yr Screening mammography 24 525510 Z12.31 [id number] Emmie Monge , [facility] [address] [address] 12/23/2023 14:14:30 12/23/2023 15:05:39 Gynecologic examination [id number] Z01.419 Z11.51 Suggested Calcium with Vitamin D 1200-1500m g daily. Patient advised to get an annual flu shot in the fall and she could obtain at [facility] or [facility]. Also to obtain TDap vaccinatio n if you have not had one in the last 10 years. Recommend yearly mammograms . Encouraged monthly self breast exams. Encourage safe sexual practices, to use condoms and limit partners if not already in a monogamous relationsh ip. Engage in daily exercise of low impact aerobic exercise 45-60 minutes 4-5 times weekly. Avoid tobacco and illicit drugs as well as using moderation with alcohol intake less than 1-2 8 oz beverages daily. This lifestyle behavior pattern will lead to less health conditions and longer life span. If BMI greater than 25 weight watchers or dietary consult advised. All questions have been answered. Patient appears to understand informatio n, but if you have any questions please call or respond to this email. Pap/hpv sentSTD Screen sentGeneti c Screen discussedC olon Screen PCPDexa Screen naRoutine Labs PCPMammo ordered Screening mammography 24 171833 Z12.31 Contracept ion care management [id number] Z30.9 Happy on OCPWishes to continueRF sent x 1yr Health Concerns Section Related Observation LastModified by Organization Detai ls LastModified Time None Recorded Concern Status LastModified by Organization Details LastModified Time None Recorded Advance Directives Directive N: Payers Encounter Date Sequence Insurance Name Policy Number Policy Cadena Covered Member ID Cadena Member ID Guarantor Name 06/11/2020 1 [employer] - DOS PRIOR TO 2024 - [employer] - [employer] ( - PPO) Kvng Perla [id number] Meena Perla 06/19/2021 1 [employer] Meena Perla [id number] Meena Perla 09/22/2022 1 [place] [id number] Meena Perla [id number] Meena Perla 12/23/2023 1 [place] [id number] Meena Perla [id number] Meena Perla Notes Date Note Type Note Provider Name and Address Organization Details Recorded Time 06/11/2020 text/html Annual GYNReport ed bypatient.History:no gynecologic complaints Menstrual cycle:Normal menses Urinary symptoms:No hematuria; No incontinence Vulva:No genital lesion Vagina:Normal vaginal discharge Breast:No breast pain; No breast lump; No nipple discharge Current Contraception:Oral contraceptives; Requests testing for sexually transmitted infections Sexual complaints:No sexual complaints; No pain during intercourse; Normal libido Menopausal Symptoms:No menopausal symptoms; Normal vaginal lubrication Psychological symptoms:No depression; No anxiety; No PMDD Preventive measures:Encourage self breast examination; Encourage regular exercise; Encourage no tobacco use; Encourage regular mammograms starting age 40; Needs to schedule mammogram Emmie Monge, CHARLES- [address], [place], [address], [facility] 06/11/2020 13:16:36 06/19/2021 text/html Annual GYNReport ed bypatient.History:no gynecologic complaints Menstrual cycle:Normal menses Urinary symptoms:No hematuria; No incontinence Vulva:No genital lesion Vagina:Normal vaginal discharge Breast:No breast pain; No breast lump; No nipple discharge Current Contraception:Satisf ied with current contraception; Monogamous relationship; Oral contraceptives; Requests testing for sexually transmitted infections Sexual complaints:No sexual complaints; No pain during intercourse; Normal libido Menopausal Symptoms:No menopausal symptoms; Normal vaginal lubrication Psychological symptoms:No depression; No anxiety; No PMDD Preventive measures:Encourage self breast examination; Encourage regular exercise; Encourage no tobacco use; Encourage regular mammograms starting age 40; Followed with Q3 year pap smear and high risk HPV typing; Mammogram performed within the past year [facility] [address], [place], [address], [facility] 06/19/2021 11:12:43 09/22/2022 text/html Annual GYNReport ed bypatient.History:no gynecologic complaints Menstrual cycle:Normal menses Urinary symptoms:No hematuria; No incontinence Vulva:No genital lesion Vagina:Normal vaginal discharge Breast:No breast pain; No breast lump; No nipple discharge Current Contraception:Satisf ied with current contraception; Oral contraceptives Sexual complaints:No sexual complaints; No pain during intercourse; Normal libido Menopausal Symptoms:No menopausal symptoms; Normal vaginal lubrication Psychological symptoms:No depression; No anxiety; No PMDD Preventive measures:Encourage self breast examination; Encourage regular exercise; Encourage no tobacco use; Encourage regular mammograms starting age 40; Followed with yearly pap smears; Needs to schedule mammogram MIRACLE Agarwal [address], [place], [address], [facility] 09/22/2022 09:59:33 12/23/2023 text/html Annual GYNReport ed bypatient.History:no gynecologic complaints Menstrual cycle:Normal menses (amenorrheic on her OCP) Urinary symptoms:No hematuria; No incontinence Vulva:No genital lesion Vagina:Normal vaginal discharge Breast:No breast pain; No breast lump; No nipple discharge Current Contraception:Satisf ied with current contraception; Oral contraceptives Sexual complaints:No sexual complaints; No pain during intercourse; Normal libido Menopausal Symptoms:No menopausal symptoms; Normal vaginal lubrication Psychological symptoms:No depression; No anxiety; No PMDD Preventive measures:Encourage self breast examination; Encourage regular exercise; Encourage no tobacco use; Encourage regular mammograms starting age 40; Followed with yearly pap smears; Needs to schedule mammogram; Needs to schedule colonoscopy (PCP) Emmie Monge, JEREMY- [address], [place], [address], [facility] 12/23/2023 14:54:29 OBGyn Episode Ob Episode Information Episode Created Date Number of Fetuses Patient Bloodtype Patient rh Status Prepregnancy Weight lbs Domestic Partner Domestic Partner Phone Father Name Orthopedic Tech Status 12/23/19 24 1 CLOSED Fetus Data First Name Last Name Admitted to NICU Weight (g) Sex Living Outcome Pediatric Complications Fetus ID Race Codes Race Delivery Type Full Term [id number] Vaginal Delivery Jeff Calculation Initial Jeff Date Initial Exam Date Initial Exam Provider Initial Ultrasound Date Last Menstrual Period Date Ultra Sound Weeks Gestation 0 Eighteen To Twenty Week Jeff Update Ultra Sound Date Fundal Height At Umbil Quickening Date Ultra Sound Latest Weeks Gestation Final Jeff Confirmed By Final Jeff Confirmed Date Final Jeff Date Ultra Sound Latest Days Gestation 0 0 Menstrual History Last Menstrual Date Menses Monthly On Bcp Conception Prior Menses Frequency Hcg Plus Date Menarche Onset Age Delivery Information Delivery Date Delivery Type Labor Anesthesia Weeks Gestation Incision Type Labor Labor Length Hrs Delivered By Post Complications Tubal Sterilization Discharge Date Comments 1 Discharge Information Feeding Method Contraceptive Method Maternal HG B and HCT Levels Ob Episode Information Episode Created Date Number of Fetuses Patient Bloodtype Patient rh Status Prepregnancy Weight lbs Domestic Partner Domestic Partner Phone Father Name Orthopedic Tech Status 12/23/19 24 1 CLOSED Fetus Data First Name Last Name Admitted to NICU Weight (g) Sex Living Outcome Pediatric Complications Fetus ID Race Codes Race Delivery Type , Spontane ous [id number] Jeff Calculation Initial Jeff Date Initial Exam Date Initial Exam Provider Initial Ultrasound Date Last Menstrual Period Date Ultra Sound Weeks Gestation 0 Eighteen To Twenty Week Jeff Update Ultra Sound Date Fundal Height At Umbil Quickening Date Ultra Sound Latest Weeks Gestation Final Jeff Confirmed By Final Jeff Confirmed Date Final Jeff Date Ultra Sound Latest Days Gestation 0 0 Menstrual History Last Menstrual Date Menses Monthly On Bcp Conception Prior Menses Frequency Hcg Plus Date Menarche Onset Age Delivery Information Delivery Date Delivery Type Labor Anesthesia Weeks Gestation Incision Type Labor Labor Length Hrs Delivered By Post Complications Tubal Sterilization Discharge Date Comments 9 Discharge Information Feeding Method Contraceptive Method Maternal HG B and HCT Levels Ob Episode Information Episode Created Date Number of Fetuses Patient Bloodtype Patient rh Status Prepregnancy Weight lbs Domestic Partner Domestic Partner Phone Father Name Orthopedic Tech Status 12/23/19 24 1 CLOSED Fetus Data First Name Last Name Admitted to NICU Weight (g) Sex Living Outcome Pediatric Complications Fetus ID Race Codes Race Delivery Type Full Term [id number] Vaginal Delivery Jeff Calculation Initial Jeff Date Initial Exam Date Initial Exam Provider Initial Ultrasound Date Last Menstrual Period Date Ultra Sound Weeks Gestation 0 Eighteen To Twenty Week Jeff Update Ultra Sound Date Fundal Height At Umbil Quickening Date Ultra Sound Latest Weeks Gestation Final Jeff Confirmed By Final Jeff Confirmed Date Final Jeff Date Ultra Sound Latest Days Gestation 0 0 Menstrual History Last Menstrual Date Menses Monthly On Bcp Conception Prior Menses Frequency Hcg Plus Date Menarche Onset Age Delivery Information Delivery Date Delivery Type Labor Anesthesia Weeks Gestation Incision Type Labor Labor Length Hrs Delivered By Post Complications Tubal Sterilization Discharge Date Comments 2 Discharge Information Feeding Method Contraceptive Method Maternal HG B and HCT Levels
--- OUTSIDE RECORDS SUMMARY | 2024-11-20 12:27 | XMS_ITS | Referral Summary ---
Author Organization [facility] [address] Address [address] [place] [address] Care Team Providers Care Field Technical Support Consultant Name Role Phone Ted Blackwell DO Primary Care Provider [phone] Allergies No known active allergies Medications ibuprofen [...] 08/31/2016 Overview (05/24/2023): ASCUS;Recorded Elsewhere: No Location: [facility] Source: EHR Chronic: N Practice ID: [id number] Billable Time: 10:30:00 AM Glycosuria 02/07/2014 Overview (05/24/2023): Glycosuria;Practice ID: 0001 Delivery normal 07/29/2012 Overview (05/24/2023): Normal delivery;Practice ID: [id number] Oligohydramnios with problem 2 Overview (05/24/2023): Oligohydramnios, antepartum;Practice ID: [id number] Oligohydramnios, antepartum;Recorded Elsewhere: No Location: [facility] Source: EHR Chronic: N Practice ID: [id number] Billable Time: 03:00:00 PM Amenorrhea 12/08/2011 Overview (05/24/2023): Absence of menstruation;Recorded Elsewhere: No Location: [facility] Source: EHR Chronic: N Practice ID: [id number] Billable Time: 02:45:00 PM Social History Tobacco Use Types Packs/Day Years Used Date Smoking Tobacco: Never Smokeless Tobacco: Never Alcohol Use Standard Drinks/Week Comments Yes 0 (1 standard drink = 0.6 oz pur e alcohol) Comments No Sex and Gender Information Value Date Recorded Sex Assigned at Not on file Legal Sex Female 3:07 PM QA ARCHITECT Gender Identity Not on file Sexual Orientation Not on file Last Filed Vital Signs Vital Sign Reading [...] 06/25/2020 1:14 PM CDT Plan of Treatment Not on file Insurance [facility] CLAIMS [facility] [place] [address] [address] CLAIMS COMMERCIAL GENERIC S AND [facility] [place] [address] Care Teams Field Technical Support Consultant Relationship Specialty Start Date End Date Ted Blackwell DO PCP - General Internal Medicine 01/16/19
--- OUTSIDE RECORDS SUMMARY | 2024-11-20 12:27 | XMS_ITS | Clinical Summary ---
Author Organization [facility] Address [facility] [place] [address] Care Team Providers Care P[employer] Ticket Checker Name Role Phone Unavailable Primary Care Provider Unavailabl e Social History Tobacco Use Types Packs/Day Years Used Date Smoking Tobacco: Never Assessed Comments Unknown Sex and Gender Information Value Date Recorded Sex Assigned at Not on file Legal Sex Female 7:24 PM CDT Gender Identity Not on file Sexual Orientation Not on file Plan of Treatment Health Maintenance Due Date Last Done Comments Cervical Cancer Screening Pa p Smear (Age 30 to 64) Every 3 Years 1978 Colorectal Cancer Screening Colonoscopy (10 Years) 1978 Annual Physical 1981 Hepatitis C 1996 DTaP, Tdap and Td Vaccines ( 1 - Tdap) 1997 Hepatitis B Vaccines (1 of 3 - 19+ 3-dose series) 1997 Cervical Cancer Screening Pa p with HPV Testing (Age 30 to 64) Every 5 Years 2008 Cervical Cancer Screening with HPV 2008 Mammogram Screening 2018 COVID-19 Vaccine (2023-2 5 season) 2024 Influenza Adult (#1) 2024 Meningococcal B Vaccine Aged Out No l onger eligible based on patient's age to complete this topic Meningococcal Vaccine Aged Out No mimi jelani eligible based on patient's age to complete this topic Pneumococcal Vaccine: Pediat rics (0 to 5 Years) and At-Risk Patients (6 to 64 Years) Aged Out No longer eligible b ased on patient's age to complete this topic RSV Immunizations Under 20 Months Aged Out No longer eligible based on patient's age to complete this topic
--- OUTSIDE RECORDS SUMMARY | 2024-11-20 12:27 | XMS_ITS | Continuity of Care Document ---
Author Name [facility] Organization [facility] Care Team Providers Care Dispensing Optician Apprentice Name Role Phone [facility] Unavailable Unavailable Social History Combined list of available smoking, tobacco, and other social history from Department of Defense and Veterans Affairs facilities. Social History Type Response Date Comment Sourc e This section is an empty social history section. [facility]
--- OUTSIDE RECORDS SUMMARY | 2024-11-20 12:27 | XMS_ITS | Clinical Summary ---
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 02/03/2023 Active Active Problems No known active problems Immunizations Immunization Administration Dates Next Due TDAP Vaccine 03/06/2023 Social History Tobacco Use Types Packs/Day Years Used Date Smoking Tobacco: Never Smokeless Tobacco: Never Tobacco Cessation:Counseling Given: Not Answered Comments No Sex and Gender Information Value Date Recorded Sex Assigned at Not on file Legal Sex Female 12:06 PM CDT Gender Identity Not on file Sexual Orientation Not on file Last Filed Vital Signs Vital Sign Reading Time Taken Comments Blood Pressure 147/90 03/06/2023 12:14 PM CDT Pulse 70 03/06/2023 12:14 PM CDT Temperature 36.6 C (97.9 F) 03/06/2023 12:14 PM CDT Respiratory Rate 17 03/06/2023 12:1 4 PM CDT Oxygen Saturation 100% 03/06/2023 12: 14 PM CDT Inhaled Oxygen Concentration - - Weight 54.7 kg (120 lb 11.2 oz) 023 12:14 PM CDT Height 162.6 cm (5' 4 ) 03/06/2023 12:1 4 PM CDT Body Mass Index 20.72 03/06/2023 12:14 PM CDT Plan of Treatment Health Maintenance Due Date Last Done Comments Hepatitis C Virus (HCV) Screening 1978 Hepatitis B Immunization (1 of 3 - 19+ 3-dose series) 1997 Pap Smear 1999 Cervical Cancer Screening (CCS) 2008 HPV/Cotest 2008 Discussion re Starting/Frequ ency of Mammograms 2018 Colonoscopy 2023 Colorectal Cancer Screening 2023 Influenza Immunization (#1) 2024 SARS-COV-2 Immunization ( season) 2024 Respiratory Syncytial Virus (RSV) Immunization (Adult) (1 - 1-dose 75+ series) 2053 DTaP/Tdap/Td Immunization Discontinued 03/06/2023 Meningococcal Immunization (ACWY) Aged Out No longer eligible based on patient's age to complete this topic Pneumococcal Immunization Combined Aged Out No longer eligible b ased on patient's age to complete this topic Rotavirus Immunization Aged Out No lo nger eligible based on patient's age to complete this topic Insurance [employer] Care Teams Ancient Art Curator Relationship Specialty Start Date End Date Provider, None [place] PCP - General 03/06/23
== END 2024-11-20 09:35 | disposition home or self-care (01) ==
LOC: ANHIMG 09:42
PROVIDERS: PCP Family Medicine; Visit Provider Nurse Practitioner Obstetrics & Gynecology
DX: Z12.31 Encounter for screening mammogram for malignant neoplasm of breast (principal)
CPT/HCPCS: 77063; 77067